=== PATIENT | female | born 1990 | race African-American/Black ===

== ENCOUNTER 2016-08-24 12:32 | Emergency (ER) | payer OTHER ==
[~2016-08-24] VITALS: Ht 154.9 cm; Wt 72.6 kg
[~2016-08-24 12:32] MED LIST: AMOXICILLIN875 MG PO; CIPROFLOXACIN500 M1 PO; ERYTHROMYCIN E3.5 G3 OPHTHALMIC; FLAGYL500 MG PO; FLEXERIL PO; IBUPROFEN 800800 M1 PO; LEVONORGESTREL1.5 MG PO; NAPROSYN500 MG PO; NOHOMEMEDICATIONS; NORCO 5-325 TA1 EACH PO; NORFLEX100 MG PO; PHENERGAN 25 MG25 M1 PO; TYLENOL EX-STR500 M2; ULTRAM 50MG TAB50 MG PO; VENTOLIN HFA 1818 GM; VENTOLIN HFA 1818 GM INH
[2016-08-24 13:09] LABS: URINE BILIRUBIN NEGATIVE (Negative); URINE BLOOD TRACE (Negative); URINE COLOR YELLOW; URINE GLUCOSE-RANDOM* NEGATIVE (Negative); URINE KETONES NEGATIVE (Negative); URINE NITRITE NEGATIVE (Negative); URINE PROTEIN (DIPSTICK) NEGATIVE (Negative); URINE SPECIFIC GRAVITY 1.025 (1.003-1.035); URINE UROBILINOGEN 0.2 E.U./dl (0.2-1.0)
[2016-08-24] MEDS ORDERED: IBUPROFEN 600600 M1 PO (14:45)
[2016-08-24 15:13] VITALS: BP 124/81
[2016-08-27 13:11] LABS: CHLAMYDIA TRACHOMATIS-PCR Negative (Negative); NEISSERIA GONORRHEA-PCR Negative (Negative)
[2016-10-26] MEDS ORDERED: MUCINEX TA600 MG/TA2 PO (09:36)
[2016-10-26] MEDS ORDERED: PROMETHAZINE-C120 ML PO (09:36)
== END 2016-08-24 15:14 | disposition home or self-care (01) ==
LOC: ER 12:32
PROVIDERS: Nurse Practitioner
DX: N89.8 Other specified noninflammatory disorders of vagina (principal); F10.99 Alcohol use, unspecified with unspecified alcohol-induced disorder; J45.909 Unspecified asthma, uncomplicated

== ENCOUNTER 2017-07-16 17:19 | Emergency (ER) | payer OTHER ==
[~2017-07-16] VITALS: Ht 154.9 cm; Wt 122.5 kg
[~2017-07-16 17:19] MED LIST changes: +IBUPROFEN 600600 M1 PO; +MUCINEX TA600 MG/TA2 PO; +PROMETHAZINE-C120 ML PO; +ZOFRAN ODT4 MG PO
[2017-07-16] MEDS ORDERED: CLARITIN-D 121 EAC1 PO (18:25)
[2017-07-16] MEDS ORDERED: TESSALON PERLE100 MG PO (18:25)
[2017-07-16] MEDS ORDERED: PREDNISONE 20 M20 MG PO (18:25)
[2017-07-16 18:29] VITALS: BP 127/81
== END 2017-07-16 18:33 | disposition home or self-care (01) ==
LOC: ER 17:19
DX: J45.909 Unspecified asthma, uncomplicated (principal); J06.9 Acute upper respiratory infection, unspecified; F10.99 Alcohol use, unspecified with unspecified alcohol-induced disorder

== ENCOUNTER 2017-08-11 15:43 | Emergency (ER) | payer OTHER ==
[~2017-08-11] VITALS: Ht 154.9 cm; Wt 90.7 kg
[~2017-08-11 15:43] MED LIST changes: +CLARITIN-D 121 EAC1 PO; +PREDNISONE 20 M20 MG PO; +TESSALON PERLE100 MG PO
[2017-08-11 15:45] VITALS: BP 117/77
[2017-08-11] MEDS ORDERED: IBUPROFEN 600600 M1 PO (16:37)
== END 2017-08-11 17:07 | disposition home or self-care (01) ==
LOC: ER 15:43
DX: S99.812A Other specified injuries of left ankle, initial encounter (principal); J45.909 Unspecified asthma, uncomplicated; W00.0XXA Fall on same level due to ice and snow, initial encounter; Y93.89 Activity, other specified; Y92.89 Other specified places as the place of occurrence of the external cause; Y99.8 Other external cause status

== ENCOUNTER 2017-11-27 15:35 | Emergency (ER) | payer OTHER ==
[~2017-11-27] VITALS: Ht 154.9 cm; Wt 95.3 kg
[2017-11-27 15:51] LABS: URINE BILIRUBIN NEGATIVE (Negative); URINE BLOOD TRACE (Negative); URINE CLARITY CLEAR; URINE COLOR YELLOW; URINE GLUCOSE-RANDOM* NEGATIVE (Negative); URINE KETONES TRACE (Negative); URINE LEUKOCYTES-REFLEX NEGATIVE (Negative); URINE NITRITE-REFLEX NEGATIVE (Negative); URINE PROTEIN (DIPSTICK) NEGATIVE (Negative); URINE SPECIFIC GRAVITY >= 1.030 (1.005-1.035); URINE UROBILINOGEN 0.2 E.U./dl (0.2-1.0)
[2017-11-27 15:52] VITALS: BP 136/74
[2017-11-27] MEDS ORDERED: RECTIV30 GM TOP (16:31)
[2017-11-27] MEDS ORDERED: LIDOCAINE 2%2 %/5 GM TOP (16:31)
[2017-11-27] MEDS ORDERED: MIRALAX17 GM PO (16:31)
[2017-11-28 14:12] LABS: NEISSERIA GONORRHEA-PCR Negative (Negative)
== END 2017-11-27 16:46 | disposition home or self-care (01) ==
LOC: ER 15:35
PROVIDERS: Physician Assistant
DX: K60.2 Anal fissure, unspecified (principal); J45.909 Unspecified asthma, uncomplicated

== ENCOUNTER 2018-02-04 00:56 | Emergency (ER) | payer OTHER ==
[~2018-02-04] VITALS: Ht 157.5 cm; Wt 90.7 kg
[~2018-02-04 00:56] MED LIST changes: +LIDOCAINE 2%2 %/5 GM TOP; +MIRALAX17 GM PO; +RECTIV30 GM TOP
[2018-02-04] MEDS ORDERED: NAPROSYN500 MG PO ×2 (02:02→02:15)
[2018-02-04] MEDS ORDERED: TRAMADOL 50 MG50 MG PO ×2 (02:02→02:15)
[2018-02-04] MEDS ORDERED: NOHOMEMEDICATIONS (02:25)
[2018-02-04 02:27] VITALS: BP 136/81
== END 2018-02-04 02:30 | disposition home or self-care (01) ==
LOC: ER 00:56
DX: J02.9 Acute pharyngitis, unspecified (principal); R42 Dizziness and giddiness; J45.909 Unspecified asthma, uncomplicated

== ENCOUNTER 2019-01-29 14:26 | Emergency (ER) | payer OTHER ==
[~2019-01-29] VITALS: Ht 154.9 cm; Wt 99.8 kg
[~2019-01-29 14:26] MED LIST changes: +TRAMADOL 50 MG50 MG PO
[2019-01-29 14:52] LABS: URINE BILIRUBIN NEGATIVE (Negative); URINE BLOOD TRACE (Negative); URINE CLARITY CLEAR; URINE COLOR YELLOW; URINE GLUCOSE-RANDOM* NEGATIVE (Negative); URINE KETONES NEGATIVE (Negative); URINE LEUKOCYTES-REFLEX NEGATIVE (Negative); URINE NITRITE-REFLEX NEGATIVE (Negative); URINE PROTEIN (DIPSTICK) NEGATIVE (Negative); URINE SPECIFIC GRAVITY 1.025 (1.005-1.035); URINE UROBILINOGEN 0.2 E.U./dl (0.2-1.0)
[2019-01-29 15:24] LABS: HEMATOCRIT 38.6 % (37.0-47.0); HEMOGLOBIN 13.1 gm/dL (12.0-15.0); MCH 29.8 pg (26.0-34.0); MCHC 33.9 g/dL (28.0-37.0); PLATELET COUNT 348 thou/uL (150-400); RBC 4.38 mil/uL (4.20-5.00); RDW 13.3 % (10.5-14.5); WBC 7.1 thou/uL (4.0-11.0)
[2019-01-29 15:41] LABS: CALCIUM 9.5 mg/dL (8.5-10.1); CREATININE 0.8 mg/dL (0.6-1.0); POTASSIUM 3.7 mmol/L (3.5-5.1)
[2019-01-29 15:46] LABS: ALBUMIN 3.8 g/dL (3.4-5.0); TOTAL BILIRUBIN 0.7 mg/dL (<0.1-1.0); TOTAL PROTEIN 8.4 g/dL (6.4-8.2)
[2019-01-29 15:57] LABS: ABSOLUTE NEUTROPHILS 3.2 thou/uL (1.4-8.2); PLATELET ESTIMATE NORMAL
[2019-01-29 17:20] VITALS: BP 123/74
[2019-01-29] MEDS ORDERED: ULTRAM 50MG TAB50 MG PO (17:24)
[2019-01-29] MEDS ORDERED: FLAGYL500 M1 PO (17:24)
== END 2019-01-29 17:20 | disposition home or self-care (01) ==
LOC: ER 14:26
PROVIDERS: Physician Assistant
DX: N83.201 Unspecified ovarian cyst, right side (principal); J45.909 Unspecified asthma, uncomplicated

== ENCOUNTER 2019-05-22 12:00 | Emergency (ER) | payer OTHER ==
[~2019-05-22] VITALS: Ht 154.9 cm; Wt 95.3 kg
[~2019-05-22 12:00] MED LIST changes: +FLAGYL500 M1 PO
[2019-05-22] MEDS ORDERED: MUCINEX DM ER1 EACH PO (13:39)
[2019-05-22] MEDS ORDERED: TESSALON PERLE100 MG PO (13:39)
[2019-05-22 13:55] VITALS: BP 118/71
== END 2019-05-22 14:07 | disposition home or self-care (01) ==
LOC: ER 12:00
DX: J06.9 Acute upper respiratory infection, unspecified (principal); J45.909 Unspecified asthma, uncomplicated

== ENCOUNTER 2019-07-12 17:03 | Emergency (ER) | payer OTHER ==
[~2019-07-12] VITALS: Ht 154.9 cm; Wt 90.7 kg
[~2019-07-12 17:03] MED LIST changes: +MUCINEX DM ER1 EACH PO
[2019-07-12] MEDS ORDERED: IBUPROFEN 800800 M1 PO (18:24)
[2019-07-12 18:46] VITALS: BP 114/75
== END 2019-07-12 18:49 | disposition home or self-care (01) ==
LOC: ER 17:03
DX: S93.491A Sprain of other ligament of right ankle, initial encounter (principal); J45.909 Unspecified asthma, uncomplicated; X50.0XXA Overexertion from strenuous movement or load, initial encounter; Y92.89 Other specified places as the place of occurrence of the external cause; Y93.89 Activity, other specified; Y99.8 Other external cause status

== ENCOUNTER 2019-08-31 09:19 | Emergency (ER) | payer OTHER ==
[~2019-08-31] VITALS: Ht 154.9 cm; Wt 90.7 kg
[2019-08-31] MEDS ORDERED: IBUPROFEN 600600 M1 PO (10:33)
[2019-08-31] MEDS ORDERED: TESSALON PERLE100 MG PO (10:33)
[2019-08-31 11:33] VITALS: BP 123/85
== END 2019-08-31 11:35 | disposition home or self-care (01) ==
LOC: ER 09:19
DX: M79.10 Myalgia, unspecified site (principal); R05 Cough; R50.9 Fever, unspecified; J45.909 Unspecified asthma, uncomplicated

== ENCOUNTER 2021-01-09 17:13 | Emergency (ER) | payer OTHER ==
[~2021-01-09] VITALS: Ht 154.9 cm; Wt 90.7 kg
[2021-01-09] MEDS ORDERED: TESSALON PERLE100 MG PO (18:19)
[2021-01-09 19:31] VITALS: BP 148/92
[2021-01-13] MEDS ORDERED: PENICILLIN VK500 MG PO (08:24)
== END 2021-01-09 19:32 | disposition home or self-care (01) ==
LOC: ER 17:13
DX: J06.9 Acute upper respiratory infection, unspecified (principal); Z20.822 Contact with and (suspected) exposure to COVID-19; J45.909 Unspecified asthma, uncomplicated; Z79.899 Other long term (current) drug therapy

== ENCOUNTER 2021-03-22 18:12 | Emergency (ER) | payer OTHER ==
[~2021-03-22] VITALS: Ht 154.9 cm; Wt 95.3 kg
[~2021-03-22 18:12] MED LIST changes: +PENICILLIN VK500 MG PO
[2021-03-22 18:32] VITALS: BP 130/74
[2021-03-22 18:55] LABS: URINE BILIRUBIN NEGATIVE (Negative); URINE BLOOD TRACE (Negative); URINE CLARITY CLEAR; URINE COLOR YELLOW; URINE GLUCOSE-RANDOM* NEGATIVE (Negative); URINE KETONES NEGATIVE (Negative); URINE LEUKOCYTES-REFLEX NEGATIVE (Negative); URINE NITRITE-REFLEX NEGATIVE (Negative); URINE PROTEIN (DIPSTICK) NEGATIVE (Negative); URINE UROBILINOGEN 0.2 E.U./dl (0.2-1.0)
== END 2021-03-22 20:34 | disposition home or self-care (01) ==
LOC: ER 18:12
PROVIDERS: Nurse Practitioner
DX: J06.9 Acute upper respiratory infection, unspecified (principal); Z20.822 Contact with and (suspected) exposure to COVID-19; J45.909 Unspecified asthma, uncomplicated; Z79.1 Long term (current) use of non-steroidal anti-inflammatories (NSAID); Z79.899 Other long term (current) drug therapy

== ENCOUNTER 2021-05-24 12:11 | Emergency (ER) | payer OTHER ==
[~2021-05-24] VITALS: Ht 154.9 cm; Wt 97.5 kg
[2021-05-24 13:30] VITALS: BP 118/80
== END 2021-05-24 13:30 | disposition home or self-care (01) ==
LOC: ER 12:11
PROVIDERS: Nurse Practitioner Family
DX: R05.9 Cough, unspecified (principal); Z20.822 Contact with and (suspected) exposure to COVID-19; J45.909 Unspecified asthma, uncomplicated; Z91.09 Other allergy status, other than to drugs and biological substances; Z79.1 Long term (current) use of non-steroidal anti-inflammatories (NSAID); Z79.899 Other long term (current) drug therapy

== ENCOUNTER 2021-08-10 21:58 | Emergency (ER) | payer OTHER ==
[~2021-08-10] VITALS: Ht 154.9 cm; Wt 95.3 kg
[2021-08-10] MEDS ORDERED: DAYQUIL PO (22:13)
[2021-08-10] MEDS ORDERED: TESSALON PERLE100 MG PO (22:43)
[2021-08-10 23:07] VITALS: BP 139/83
== END 2021-08-10 23:03 | disposition home or self-care (01) ==
LOC: ER 21:58
DX: J06.9 Acute upper respiratory infection, unspecified (principal); Z20.822 Contact with and (suspected) exposure to COVID-19; J45.909 Unspecified asthma, uncomplicated; Z79.899 Other long term (current) drug therapy

== ENCOUNTER 2021-08-16 08:42 | Emergency (ER) | payer OTHER ==
[~2021-08-16] VITALS: Ht 154.9 cm; Wt 95.3 kg
[~2021-08-16 08:42] MED LIST changes: +DAYQUIL PO
[2021-08-16 08:54] VITALS: BP 123/79
[2021-08-16] MEDS ORDERED: AZITHROMYCIN 2250 MG PO (11:52)
[2021-08-16] MEDS ORDERED: GUAIFENESIN-CO473 ML PO (11:54)
== END 2021-08-16 11:41 | disposition home or self-care (01) ==
LOC: ER 08:42
PROVIDERS: Emergency Medicine
DX: U07.1 COVID-19 (principal); J12.82 Pneumonia due to coronavirus disease 2019; J45.909 Unspecified asthma, uncomplicated; Z79.899 Other long term (current) drug therapy

== ENCOUNTER 2021-08-21 15:23 | Emergency (ER) | payer OTHER ==
[~2021-08-21 15:23] MED LIST changes: +AZITHROMYCIN 2250 MG PO; +GUAIFENESIN-CO473 ML PO
== END 2021-08-21 16:01 | disposition left against medical advice (07) ==
LOC: ER 15:23
DX: R06.02 Shortness of breath (principal); Z53.21 Procedure and treatment not carried out due to patient leaving prior to being seen by health care provider

== ENCOUNTER 2021-08-23 19:14 | Emergency (ER) | payer OTHER ==
[~2021-08-23] VITALS: Ht 154.9 cm; Wt 99.8 kg
[2021-08-23 20:59] VITALS: BP 117/76
[2021-08-23] MEDS ORDERED: TESSALON PERLE100 MG PO (21:00)
[2021-08-23] MEDS ORDERED: MEDROLDOSEPACK PO (21:03)
== END 2021-08-23 21:00 | disposition home or self-care (01) ==
LOC: ER 19:14
DX: R05.9 Cough, unspecified (principal); J45.909 Unspecified asthma, uncomplicated; Z79.891 Long term (current) use of opiate analgesic; Z79.899 Other long term (current) drug therapy